=== PATIENT | male | born 1970 | race Caucasian/White ===

== ENCOUNTER 2016-10-16 17:46 | Emergency (ER) | payer OTHER ==
[2016-10-16 18:04] VITALS: TEMP 97.5
[2016-10-16] MEDS ORDERED: SODIUM CHLORIDE 0.9% 1,000 ML IV STA (18:19)
[2016-10-16] MEDS ORDERED: RX INFO: IV CONTRAST WAS GIVEN 1 EACH MISC MISCELLANE PRN (18:24)
--- NOTE | 2016-10-16 18:41 | ED ---
Neck Injury/Pain HPI - General Chief Complaint: Neck Pain/Injury Stated Complaint: neck pain Time Seen by Provider: 10/16/16 18:07 Source: RN notes reviewed Mode of arrival: ambulatory Limitations: no limitations - History of Present Illness Initial Comments: Patient is a 46-year-old male with chief complaint of increased neck pain, fever and chills for approximately one week. Patient reports that he has a history of staph infection in his cervical spine. He reports that he has been admitted in the past and given IV antibiotics for this. He reports that he had surgery on his spine and March 2016 and developed infection. Patient had neck pain and an elevated white count in July 2016. At that point he was transferred to [facility]. Patient states that he has been taking his Neurontin and Flexeril however his pain is continue to persist. He also reports that over the past day he has increased cough and has coughed up some bloody sputum. He reports that he is a smoker. - Related Data Home Medications Medication Instructions Recorded Confirmed Cephalexin [Keflex] 250 mg PO Q8HR 07/22/16 10/16/16 Gabapentin [Neurontin] 300 mg PO TID 07/22/16 10/16/16 Phenytoin Sodium Extended 100 mg PO TID 07/22/16 10/16/16 [Dilantin] oxyCODONE-APAP 10-325MG [Percocet 1 tab PO QID PRN 07/22/16 10/16/16 10-325 mg] Cyclobenzaprine [Flexeril] 10 mg PO TID PRN 10/16/16 10/16/16 Allergies Allergy/AdvReac Type Severity Reaction Status Date / Time No Known Allergies Allergy Verified 10/16/16 18:16 Review of Systems ROS Statement: Those systems with pertinent positive or pertinent negative responses have been documented in the HPI. ROS Other: All systems not noted in ROS Statement are negative. Past Medical History Past Medical History: Seizure Disorder Additional Past Medical History / Comment(s): chronic back pain, neck pain, staph infection to spine History of Any Multi-Drug Resistant Organisms: None Reported Past Surgical History: Orthopedic Surgery Additional Past Surgical History / Comment(s): neck surgery Past Psychological History: No Psychological Hx Reported Smoking Status: Current every day smoker Past Alcohol Use History: None Reported Past Drug Use History: None Reported General Exam - General Exam Comments Initial Comments: Well-appearing 46-year-old male. No acute distress. Limitations: no limitations General appearance: alert, in no apparent distress Head exam: Present: atraumatic, normocephalic, normal inspection Eye exam: Present: normal appearance, PERRL, EOMI. Absent: scleral icterus, conjunctival injection, periorbital swelling ENT exam: Present: normal exam, mucous membranes moist Neck exam: Present: normal inspection, tenderness (Patient has mild tenderness over the C6 through C7 spine. Evidence of previous surgery of an anterior approach with a scar there.). Absent: meningismus, full ROM (She has limited lateral flexion and extension.), lymphadenopathy Respiratory exam: Present: normal lung sounds bilaterally, other (She has no coughing the emergency room.). Absent: respiratory distress, wheezes, rales, rhonchi, stridor Cardiovascular Exam: Present: regular rate, normal rhythm, normal heart sounds. Absent: systolic murmur, diastolic murmur, rubs, gallop, clicks GI/Abdominal exam: Present: soft, normal bowel sounds. Absent: distended, tenderness, guarding, rebound, rigid Extremities exam: Present: normal inspection, full ROM, normal capillary refill. Absent: tenderness, pedal edema, joint swelling, calf tenderness Back exam: Present: normal inspection Neurological exam: Present: alert, oriented X3, CN II-XII intact Psychiatric exam: Present: normal affect, normal mood Skin exam: Present: warm, dry, intact, normal color, other (She has multiple tattoos over her body.). Absent: rash Course Vital Signs 10/16/16 10/16/16 18:01 20:38 Temperature 97.5 F L Pulse Rate 104 H 84 Respiratory 18 16 Rate Blood Pressure 122/68 119/72 O2 Sat by Pulse 100 97 Oximetry Medical Decision Making - Medical Decision Making Patient is a 46-year-old male with chief complaint of increased neck pain, fever and chills for approximately one week. Patient reports that he has a history of staph infection in his cervical spine. He reports that he has been admitted in the past and given IV antibiotics for this. He reports that he had surgery on his spine and March 2016 and developed infection. Lab work was reviewed and is negative for any acute abnormalities. Patient has a negative influenza screen. Chest x-ray is negative for any acute process. CT cervical spine with contrast was reviewed. No evidence of developing abscess or focal abnormalities. There is evidence of previous surgical changes. I discussed the findings with the patient. I discussed with the negative lab workup and the CT that is likely a chronic pain issue causing his increased discomfort at this time. I discussed the patient needs to follow-up with a event specialist product demonstrator. Again patient had no signs of respiratory distress and no coughing in the emergency department. Patient will be advised to follow-up with his primary care provider in regards to continued cough or if he does cough up blood again. Patient was given IV pain medications and I did discuss that he needs to take his at home pain medication. Patient understands the treatment plan will comply. Return parameters were discussed. - Lab Data Result diagrams: 10/16/16 18:49 10/16/16 18:49 Lab Results 10/16/16 10/16/16 10/16/16 Range/Units 18:49 18:49 18:49 WBC 10.0 (3.8-10.6) k/uL RBC 4.54 (4.30-5.90) m/uL Hgb 13.6 (13.0-17.5) gm/dL Hct 41.7 (39.0-53.0) % MCV 91.9 (80.0-100.0) fL MCH 30.1 (25.0-35.0) pg MCHC 32.7 (31.0-37.0) g/dL RDW 14.3 (11.5-15.5) % Plt Count 301 (150-450) k/uL Neutrophils % 67 % Lymphocytes % 26 % Monocytes % 3 % Eosinophils % 1 % Basophils % 1 % Neutrophils # 6.6 (1.3-7.7) k/uL Lymphocytes # 2.6 (1.0-4.8) k/uL Monocytes # 0.3 (0-1.0) k/uL Eosinophils # 0.1 (0-0.7) k/uL Basophils # 0.1 (0-0.2) k/uL Sodium 143 (137-145) mmol/L Potassium 4.3 (3.5-5.1) mmol/L Chloride 107 (98-107) mmol/L Carbon Dioxide 20 L (22-30) mmol/L Anion Gap 16 mmol/L BUN 13 (9-20) mg/dL Creatinine 0.90 (0.66-1.25) mg/dL Est GFR (MDRD) Af Amer >60 (>60 ml/min/1.73 sqM) Est GFR (MDRD) Non-Af >60 (>60 ml/min/1.73 sqM) Glucose 125 H (74-99) mg/dL Plasma Lactic Acid Dong (0.7-2.0) mmol/L Calcium 9.6 (8.4-10.2) mg/dL C-Reactive Protein <5.0 (<10.0) mg/L Influenza Type A RNA Not Detected (Not Detectd) Influenza Type B (PCR) Not Detected (Not Detectd) 10/16/16 Range/Units 18:49 WBC (3.8-10.6) k/uL RBC (4.30-5.90) m/uL Hgb (13.0-17.5) gm/dL Hct (39.0-53.0) % MCV (80.0-100.0) fL MCH (25.0-35.0) pg MCHC (31.0-37.0) g/dL RDW (11.5-15.5) % Plt Count (150-450) k/uL Neutrophils % % Lymphocytes % % Monocytes % % Eosinophils % % Basophils % % Neutrophils # (1.3-7.7) k/uL Lymphocytes # (1.0-4.8) k/uL Monocytes # (0-1.0) k/uL Eosinophils # (0-0.7) k/uL Basophils # (0-0.2) k/uL Sodium (137-145) mmol/L Potassium (3.5-5.1) mmol/L Chloride (98-107) mmol/L Carbon Dioxide (22-30) mmol/L Anion Gap mmol/L BUN (9-20) mg/dL Creatinine (0.66-1.25) mg/dL Est GFR (MDRD) Af Amer (>60 ml/min/1.73 sqM) Est GFR (MDRD) Non-Af (>60 ml/min/1.73 sqM) Glucose (74-99) mg/dL Plasma Lactic Acid Dong 2.0 (0.7-2.0) mmol/L Calcium (8.4-10.2) mg/dL C-Reactive Protein (<10.0) mg/L Influenza Type A RNA (Not Detectd) Influenza Type B (PCR) (Not Detectd) - Radiology Data Radiology results: report reviewed Stable postoperative appearance of the cervical spine with stable alignment. No pathological enhancement or enhancing collection at this time. Chest x-rays no evidence for any acute pulmonary disease. Disposition Clinical Impression: Neck pain Disposition: HOME SELF-CARE Condition: Good Instructions: Cervical Strain (ED) Additional Instructions: Patient advised to take at home pain medication. 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 Return to the emergency department if any alarming signs or symptoms occur. Referrals: Kalli Means MD [Primary Care Provider] - 1-2 days Time of Disposition: 20:26
[2016-10-16 19:20] LABS: Anion Gap 16 mmol/L; Blood Urea Nitrogen 13 mg/dL (9-20); C Reactive Protein <5.0 mg/L (<10.0); Calcium 9.6 mg/dL (8.4-10.2); Carbon Dioxide 20 mmol/L (22-30); Chloride 107 mmol/L (98-107); Glucose 125 mg/dL (74-99); Non-African American GFR(MDRD) >60 (>60 ml/min/1.73 sqM); Potassium 4.3 mmol/L (3.5-5.1); Sodium 143 mmol/L (137-145)
[2016-10-16 19:34] LABS: Basophils # (A) 0.1 k/uL (0-0.2); Basophils % (A) 1 %; CH 29.8; CHCM 32.6; Eosinophils # (A) 0.1 k/uL (0-0.7); Eosinophils % (A) 1 %; HCT 41.7 % (39.0-53.0); HDW 2.35; HGB 13.6 gm/dL (13.0-17.5); Luc # (Auto) 0.25; Luc % (Auto) 3; Lymphocytes # (A) 2.6 k/uL (1.0-4.8); Lymphocytes % (A) 26 %; MCH 30.1 pg (25.0-35.0); MCHC 32.7 g/dL (31.0-37.0); MCV 91.9 fL (80.0-100.0); Mean Platelet Volume 8.6; Monocytes # (A) 0.3 k/uL (0-1.0); Monocytes % (A) 3 %; Neutrophils # (A) 6.6 k/uL (1.3-7.7); Neutrophils % (A) 67 %; RBC 4.54 m/uL (4.30-5.90); RDW 14.3 % (11.5-15.5); WBC (Perox) 9.27
--- NOTE | 2016-10-16 19:45 | XR ---
EXAMINATION TYPE: XR chest 2V DATE OF EXAM: 10/16/2016 7:38 PM COMPARISON: 07/22/2016 HISTORY: Shortness of breath TECHNIQUE: Frontal and lateral views of the chest are obtained. FINDINGS: Scattered senescent parenchymal changes noted. Hyperinflation compatible with COPD. No evidence for infiltrate. No evidence for atelectasis. Heart size is stable. Mediastinal structures are stable and grossly unremarkable. No evidence for hilar prominence. Degenerative changes dorsal spine. IMPRESSION: 1. No evidence for acute pulmonary disease.
--- NOTE | 2016-10-16 20:13 | CT ---
EXAMINATION TYPE: CT cervical spine w con DATE OF EXAM: 10/16/2016 7:51 PM COMPARISON: 07/22/2016 HISTORY: Cervical fusion -2015, patient then developed staph infection. Pain x [address] DLP: 482.[address] of the cervical spine was performed with bone and soft tissue window settings submitted . Coronal and sagittal reconstruction is obtained. Postoperative changes of the anterior cervical discectomy and fusion at C5-6 and C6-7. There is stabl e alignment relative to the prior study. Mild reversal of the normal cervical lordosis. I do not see evidence for enhancing collection or bony destructive process this time. There is normal alignment an d prevertebral soft tissues. I do not see evidence for fracture or subluxation. degenerative brown es are present. The lung apices are clear emphysematous changes right upper lobe. IMPRESSION: 1. Stable postoperative appearance of the cervical spine with stable alignment. No pathologic enhance ment or enhancing collection at this time.
[2016-10-16] MEDS ORDERED: ORPHENADRINE 30 MG/ML 2 ML VIAL IVP STA (20:17)
[2016-10-16] MEDS ORDERED: KETOROLAC 30 MG/ML 1 ML VIAL IVP STA (20:19)
[2016-10-16 20:47] VITALS: BP 119/72; PULSE 84; RESP 16
== END 2016-10-16 20:38 | disposition home or self-care (01) ==
LOC: EC 17:46
DX: S16.1XXA Strain of muscle, fascia and tendon at neck level, initial encounter (principal); R50.9 Fever, unspecified; F17.200 Nicotine dependence, unspecified, uncomplicated; G40.909 Epilepsy, unspecified, not intractable, without status epilepticus; Z79.899 Other long term (current) drug therapy; Z86.19 Personal history of other infectious and parasitic diseases; Z98.890 Other specified postprocedural states; X58.XXXA Exposure to other specified factors, initial encounter
CPT/HCPCS: 96361 ×2; 96374 ×2; 96375 ×2; 99284 ×2; 36415; 80048; 83605; 85025; 86140; 87040; 87502; 71020; 72126; J2360; J1885; Q9967

== ENCOUNTER 2017-02-26 22:03 | Emergency (ER) | payer OTHER ==
[2017-02-26 22:17] VITALS: RESP 18
[2017-02-26] MEDS ORDERED: SODIUM CHLORIDE 0.9% 1,000 ML IV STA (23:02)
--- NOTE | 2017-02-26 23:09 | ED ---
General Adult HPI - General Chief complaint: Skin/Abscess/Foreign Body Stated complaint: Sent by PCP- Lizeth St[facility]. Time Seen by Provider: 02/26/17 22:57 Source: patient, RN notes reviewed Mode of arrival: ambulatory Limitations: no limitations - History of Present Illness Initial comments: Patient 46-year-old male who is a IV drug user with a history of staph infection to his spine, presenting with chief complaint of feeling feverish and rundown over the last few days. Does admit that he talked his family doctor was advised coming here to the emergency room have labs obtained. He does admit to recent IV drug abuse just one day ago. Patient does admit to a history of a staph infection to his spine at a PICC line in place. States that he was just started on a oral antibiotic yesterday by the family doctor of [place]. Patient does admit to feeling feverish at home. Admits to feeling somewhat lethargic. Admits to feeling nauseated. Patient denies any recent chills, shortness of breath, chest pain, back pain, abdominal pain, vomiting, numbness or tingling, dysuria or hematuria, constipation or diarrhea, headaches or visual changes, or any other complaints. - Related Data Home Medications Medication Instructions Recorded Confirmed Gabapentin 600 mg PO TID 02/26/17 02/26/17 Methadone HCl [Methadone Intensol] 95 mg PO DAILY 02/26/17 02/26/17 Phenytoin [Dilantin Chew] 50 mg PO TID 02/26/17 02/26/17 Allergies Allergy/AdvReac Type Severity Reaction Status Date / Time No Known Allergies Allergy Verified 02/26/17 22:57 Review of Systems ROS Statement: Those systems with pertinent positive or pertinent negative responses have been documented in the HPI. ROS Other: All systems not noted in ROS Statement are negative. Past Medical History Past Medical History: Seizure Disorder Additional Past Medical History / Comment(s): chronic back pain, neck pain, staph infection to spine History of Any Multi-Drug Resistant Organisms: None Reported Past Surgical History: Orthopedic Surgery Additional Past Surgical History / Comment(s): neck surgery Past Psychological History: PTSD Smoking Status: Current every day smoker Past Alcohol Use History: None Reported Past Drug Use History: Heroin General Exam - General Exam Comments Initial Comments: General: The patient is awake and alert, in no distress, and does not appear acutely ill. Eye: Pupils are equal, round and reactive to light, extra-ocular movements are intact. No nystagmus. There is normal conjunctiva bilaterally. No signs of icterus. Ears, nose, mouth and throat: There are moist mucous membranes and no oral lesions. Neck: The neck is supple, there is no tenderness or JVD. Cardiovascular: There is a regular rate and rhythm. No murmur, rub or gallop is appreciated. Respiratory: Lungs are clear to auscultation, respirations are non-labored, breath sounds are equal. No wheezes, stridor, rales, or rhonchi. Gastrointestinal: Soft, non-distended, non-tender abdomen without masses or organomegaly noted. There is no rebound or guarding present. No CVA tenderness. Bowel sounds are unremarkable. Musculoskeletal: Normal ROM, no tenderness. Strength 5/5. Sensation intact. Pulses equal bilaterally 2+. Neurological: A&O x 3. CN II-XII intact, There are no obvious motor or sensory deficits. Coordination appears grossly intact. Speech is normal. Skin: Skin is warm and dry and no rashes or lesions are noted. Psychiatric: Cooperative, appropriate mood & affect, normal judgment. Limitations: no limitations Course Vital Signs 02/26/17 22:14 Temperature 98.3 F Pulse Rate 85 Respiratory 18 Rate Blood Pressure 113/73 O2 Sat by Pulse 98 Oximetry Medical Decision Making - Medical Decision Making Labs reviewed here in the emergency room. Negative white count. Negative lactic acid. Pulses culture is pending. At this time patient just started antibiotics yesterday for possible staph infection. Denies using his antibiotics office family doctor over the next 1-2 days. Advised return to emergency room if any symptoms increase or worsen or for any other concerns. - Lab Data Result diagrams: 02/26/17 23:37 02/26/17 23:37 Lab Results 02/26/17 02/26/17 02/26/17 Range/Units 23:37 23:37 23:37 WBC 6.9 (3.8-10.6) k/uL RBC 4.26 L (4.30-5.90) m/uL Hgb 13.0 (13.0-17.5) gm/dL Hct 39.4 (39.0-53.0) % MCV 92.5 (80.0-100.0) fL MCH 30.4 (25.0-35.0) pg MCHC 32.9 (31.0-37.0) g/dL RDW 14.5 (11.5-15.5) % Plt Count 267 (150-450) k/uL Neutrophils % 58 % Lymphocytes % 33 % Monocytes % 4 % Eosinophils % 4 % Basophils % 1 % Neutrophils # 4.0 (1.3-7.7) k/uL Lymphocytes # 2.3 (1.0-4.8) k/uL Monocytes # 0.2 (0-1.0) k/uL Eosinophils # 0.3 (0-0.7) k/uL Basophils # 0.1 (0-0.2) k/uL Sodium 141 (137-145) mmol/L Potassium 4.0 (3.5-5.1) mmol/L Chloride 106 (98-107) mmol/L Carbon Dioxide 26 (22-30) mmol/L Anion Gap 9 mmol/L BUN 7 L (9-20) mg/dL Creatinine 0.80 (0.66-1.25) mg/dL Est GFR (MDRD) Af Amer >60 (>60 ml/min/1.73 sqM) Est GFR (MDRD) Non-Af >60 (>60 ml/min/1.73 sqM) Glucose 131 H (74-99) mg/dL Plasma Lactic Acid Dong 1.7 (0.7-2.0) mmol/L Calcium 9.0 (8.4-10.2) mg/dL Total Bilirubin 0.3 (0.2-1.3) mg/dL AST 37 (17-59) U/L ALT 78 H (21-72) U/L Alkaline Phosphatase 161 H (38-126) U/L Total Protein 6.7 (6.3-8.2) g/dL Albumin 3.8 (3.5-5.0) g/dL Disposition Clinical Impression: History of staph infection Disposition: HOME SELF-CARE Condition: Good Instructions: Abscess (ED) Additional Instructions: Please use medication as discussed. Please follow-up with family doctor in the next 2 days. Please return to emergency room if the symptoms increase or worsen or for any other concerns. Referrals: Kalli Means MD [Primary Care Provider] - 1-2 days Time of Disposition: 00:24
[2017-02-26 23:54] LABS: Basophils # (A) 0.1 k/uL (0-0.2); Basophils % (A) 1 %; CH 29.7; CHCM 32.3; Eosinophils # (A) 0.3 k/uL (0-0.7); Eosinophils % (A) 4 %; HCT 39.4 % (39.0-53.0); HDW 2.65; Luc # (Auto) 0.09; Luc % (Auto) 1; Lymphocytes # (A) 2.3 k/uL (1.0-4.8); Lymphocytes % (A) 33 %; MCH 30.4 pg (25.0-35.0); MCHC 32.9 g/dL (31.0-37.0); MCV 92.5 fL (80.0-100.0); Monocytes # (A) 0.2 k/uL (0-1.0); Monocytes % (A) 4 %; Neutrophils % (A) 58 %; RBC 4.26 m/uL (4.30-5.90); RDW 14.5 % (11.5-15.5); WBC 6.9 k/uL (3.8-10.6); WBC (Perox) 6.76
[2017-02-26 23:58] LABS: ALT 78 U/L (21-72); AST 37 U/L (17-59); Alkaline Phosphatase 161 U/L (38-126); Anion Gap 9 mmol/L; Blood Urea Nitrogen 7 mg/dL (9-20); Carbon Dioxide 26 mmol/L (22-30); Chloride 106 mmol/L (98-107); Glucose 131 mg/dL (74-99); Non-African American GFR(MDRD) >60 (>60 ml/min/1.73 sqM); Sodium 141 mmol/L (137-145); Total Bilirubin 0.3 mg/dL (0.2-1.3); Total Protein 6.7 g/dL (6.3-8.2)
[2017-02-27 00:27] VITALS: BP 116/64; PULSE 80; TEMP 97
== END 2017-02-27 00:31 | disposition home or self-care (01) ==
LOC: EC 22:03
DX: R50.9 Fever, unspecified (principal); R53.83 Other fatigue; R11.0 Nausea; Z86.19 Personal history of other infectious and parasitic diseases; G40.909 Epilepsy, unspecified, not intractable, without status epilepticus; F17.200 Nicotine dependence, unspecified, uncomplicated; Z79.899 Other long term (current) drug therapy
CPT/HCPCS: 36415; 80053; 83605; 85025; 87040; 96360; 99283

== ENCOUNTER 2017-08-10 15:01 | Emergency (ER) | payer OTHER ==
[2017-08-10 15:20] VITALS: BP 111/72; PULSE 89; RESP 18; TEMP 99.1
[2017-08-10] MEDS ORDERED: ONDANSETRON 4 MG/2 ML VIAL IVP STA (16:19)
[2017-08-10] MEDS ORDERED: SODIUM CHLORIDE 0.9% 1,000 ML IV STA ×2 (16:19)
--- NOTE | 2017-08-10 16:35 | ED ---
General Adult HPI - General Chief complaint: Nausea/Vomiting/Diarrhea Stated complaint: Vomiting Time Seen by Provider: 08/10/17 15:56 Source: patient, RN notes reviewed, old records reviewed Mode of arrival: ambulatory Limitations: no limitations - History of Present Illness Initial comments: 46-year-old male presents emergency department today chief complaint of 2 weeks of cough, and feels like there is fluid on his lungs. He reports that a few episodes of vomiting. Patient states that he's had these symptoms for the past 2 weeks. He denies any specific fever or chills. He reports he is diagnosed with hepatitis A, but refused to be admitted at that time. Patient states that he has been feeling dealing with some chronic abdominal pain since the diagnosis of a. Patient states that he has had no changes in bowel habits. Denies any changes in urination. Denies a specific back pain. He reports that he does have some chest discomfort and burning in his lungs. Patient states these not had any recent pain medication or antibiotics or medications. Surgical history includes neck surgery. Is not on any other medications at this time. He does have a history of GERD but he reports that he doesn't this pain does not feel like upper GI reflux. - Related Data Home Medications Medication Instructions Recorded Confirmed Hydrocodone/Acetaminophen [[place] 1 tab PO Q6H PRN 08/10/17 08/10/17 10-325] Phenytoin Sodium Extended 100 mg PO TID 08/10/17 08/10/17 [Dilantin] Allergies Allergy/AdvReac Type Severity Reaction Status Date / Time No Known Allergies Allergy Verified 08/10/17 16:27 Review of Systems ROS Statement: Those systems with pertinent positive or pertinent negative responses have been documented in the HPI. ROS Other: All systems not noted in ROS Statement are negative. Past Medical History Past Medical History: Seizure Disorder Additional Past Medical History / Comment(s): chronic back pain, neck pain, staph infection to spine hepatitis a History of Any Multi-Drug Resistant Organisms: None Reported Past Surgical History: Orthopedic Surgery Additional Past Surgical History / Comment(s): neck surgery Past Psychological History: PTSD Smoking Status: Current every day smoker Past Alcohol Use History: None Reported Past Drug Use History: None Reported, Heroin General Exam - General Exam Comments Initial Comments: This is a 46-year-old male. No distress. Limitations: no limitations General appearance: alert, in no apparent distress Head exam: Present: atraumatic, normocephalic, normal inspection Eye exam: Present: normal appearance, PERRL, EOMI. Absent: scleral icterus, conjunctival injection, periorbital swelling ENT exam: Present: normal exam, mucous membranes moist Neck exam: Present: normal inspection. Absent: tenderness, meningismus, lymphadenopathy Respiratory exam: Present: normal lung sounds bilaterally. Absent: respiratory distress, wheezes, rales, rhonchi, stridor Cardiovascular Exam: Present: regular rate, normal rhythm, normal heart sounds. Absent: systolic murmur, diastolic murmur, rubs, gallop, clicks GI/Abdominal exam: Present: soft, normal bowel sounds. Absent: distended, tenderness, guarding, rebound, rigid Extremities exam: Present: normal inspection, full ROM, normal capillary refill. Absent: tenderness, pedal edema, joint swelling, calf tenderness Back exam: Present: normal inspection Neurological exam: Present: alert, oriented X3, CN II-XII intact Psychiatric exam: Present: normal affect, normal mood Skin exam: Present: warm, dry, intact, normal color. Absent: rash Course Vital Signs 08/10/17 15:17 Temperature 99.1 F Pulse Rate 89 Respiratory 18 Rate Blood Pressure 111/72 O2 Sat by Pulse 99 Oximetry Medical Decision Making - Medical Decision Making This is a 46-year-old male presents today chief complaint of "feeling like her fluid on his lungs". Patient reports that a few episodes of vomiting. I examined the patient, his lungs are clear auscultation, no significant abdominal tenderness, no fluid over bilateral lower extremities. And a complaints of chest pain. I discussed with him I would like to do a workup including EKG, chest x-ray and lab work. Patient was in agreement with this plan. At approximately 10 minutes later patient proceeded to leave without telling anybody in the emergency department he was leaving or why he was leaving. Patient did not relate to me that he was in any type insurance or under any distress. He seemed to be appropriate while I was evaluating the patient. They did not seem upset or hostile at that time. I do not know why the patient left. Patient left AMA. Disposition Clinical Impression: Vomiting, Chest pain Disposition: Left Against Medical Advice Referrals: Kalli Means MD [Primary Care Provider] - 1-2 days Time of Disposition: 16:34
== END 2017-08-10 16:25 | disposition left against medical advice (07) ==
LOC: EC 15:01
DX: R07.9 Chest pain, unspecified (principal); R11.10 Vomiting, unspecified; R05 Cough; G40.909 Epilepsy, unspecified, not intractable, without status epilepticus; F17.200 Nicotine dependence, unspecified, uncomplicated; Z79.899 Other long term (current) drug therapy
CPT/HCPCS: 99284

== ENCOUNTER 2019-08-14 11:26 | Emergency (ER) | payer OTHER ==
[2019-08-14 11:40] VITALS: BP 98/70; PULSE 110; RESP 18; TEMP 98
--- NOTE | 2019-08-14 12:49 | ED ---
Male Urogenital HPI - General Chief complaint: Urogenital Stated complaint: Male Time Seen by Provider: 08/14/19 11:44 Source: patient Mode of arrival: ambulatory Limitations: no limitations - History of Present Illness Initial comments: Patient is a 48-year-old male presenting to emergency Department with a chief complaint of testicular swelling. He states that his testicle has been swollen for about one year. Reportedly was only discomfort but no significant pain or tenderness. He reports over the last day the pain in the swelling is increasing severity. He denies any nausea or vomiting but does report some suprapubic abdominal pain. Denies any obstructive urinary symptoms. Denies any penile swelling or discharge. Patient is not concerned for STDs. Patient denies any night sweats fevers or chills. States the pain is not alleviated with testicular elevation. Denies taking any other medication to alleviate the symptoms. - Related Data Home Medications Medication Instructions Recorded Confirmed Hydrocodone/Acetaminophen [[place] 1 tab PO Q6H PRN 08/10/17 08/10/17 10-325] Phenytoin Sodium Extended 100 mg PO TID 08/10/17 08/10/17 [Dilantin] Allergies Allergy/AdvReac Type Severity Reaction Status Date / Time No Known Allergies Allergy Verified 08/10/17 16:27 Review of Systems ROS Statement: Those systems with pertinent positive or pertinent negative responses have been documented in the HPI. ROS Other: All systems not noted in ROS Statement are negative. Past Medical History Past Medical History: Seizure Disorder Additional Past Medical History / Comment(s): chronic back pain, neck pain, staph infection to spine hepatitis a History of Any Multi-Drug Resistant Organisms: None Reported Past Surgical History: Orthopedic Surgery Additional Past Surgical History / Comment(s): neck surgery Past Psychological History: PTSD Smoking Status: Current every day smoker Past Alcohol Use History: None Reported Past Drug Use History: None Reported, Heroin General Exam Limitations: no limitations General appearance: alert, in no apparent distress Head exam: Present: atraumatic, normocephalic, normal inspection Eye exam: Present: normal appearance, PERRL, EOMI Pupils: Present: normal accommodation ENT exam: Present: normal exam, mucous membranes moist Neck exam: Present: normal inspection, full ROM Respiratory exam: Present: normal lung sounds bilaterally Cardiovascular Exam: Present: regular rate, normal rhythm, normal heart sounds GI/Abdominal exam: Present: soft, tenderness (Mild hypogastric abdominal pain.). Absent: distended exam: Present: normal inspection, testicular tenderness (Very mild testicular tenderness on palpation), scrotal swelling (Left testicular swelling.), circumcision, other (No testicular erythema. Negative Prehn's sign.). Absent: urethral discharge, vertical testicular lie Extremities exam: Present: normal inspection, full ROM, normal capillary refill Back exam: Present: normal inspection, full ROM Neurological exam: Present: alert, oriented X3 Psychiatric exam: Present: normal affect, normal mood Skin exam: Present: warm, dry, intact, normal color Course Vital Signs 08/14/19 11:36 Temperature 98.0 F Pulse Rate 110 H Respiratory 18 Rate Blood Pressure 98/70 O2 Sat by Pulse 98 Oximetry Medical Decision Making - Medical Decision Making Patient is a 48-year-old male presenting to emergency Department with a chief complaint of testicular pain. This has been ongoing for the past year with sudden increase in pain and swelling. On exam patient does have enlargement of the left testicle. Negative Prehn sign. Ultrasound shows good blood flow that is symmetric in bilateral testicles. A large cyst appears to be about 5 cm in size located in the left scrotum superior to the left testicle most likely being an epididymal cyst. Patient advised to follow-up with urology for further management. Patient will be discharged with Zofran. Strict return parameters were thoroughly discussed with patient was understanding and agreeable. Case discussed with physician. Disposition Clinical Impression: Epididymal cyst, Testicular swelling, left Disposition: HOME SELF-CARE Condition: Stable Instructions (If sedation given, give patient instructions): Scrotal Pain (ED) Additional Instructions: Please follow up with urology. Alternate between Tylenol and ibuprofen for pain control. Take prescribed medication as directed. Is patient prescribed a controlled substance at d/c from ED?: No Referrals: Kalli Means MD [Primary Care Provider] - 1-2 days Edgar Donahue MD [STAFF PHYSICIAN] - 1-2 days Time of Disposition: 13:58
--- NOTE | 2019-08-14 12:53 | US ---
EXAMINATION TYPE: US scrotum with doppler. Grayscale and color Doppler Duplex imaging performed of t he scrotum. DATE OF EXAM: 08/14/2019 COMPARISON: NONE CLINICAL HISTORY: swelling tenderness. Pt states left testicle swelling x 1 year, recent pain EXAM MEASUREMENTS: TESTICLES: Right Testicle: 4.8 x 2.2 x 3.2 cm Left Testicle: 3.9 x 2.0 x 3.8 cm EPIDIDYMIS HEAD: Right Epididymis: 1.0 cm Left Epididymis: unable to to visualize normal epididymis Doppler performed to assess for testicular vascularity; good bilateral color flow and waveforms are s een. Presence of hydroceles: Small amount of fluid surrounding left testicle Presence of varicoceles: NO Both testicles are identified without suspicious intratesticular mass. There is asymmetric left-sided scrotal fluid collection or hydrocele not completely anechoic. 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 Color images show satisfactory blood flow bilateral ly. Superior to left testicle there is 5.4 cm simple appearing thin-walled cyst could reflect large e pididymal cyst. Color images show satisfactory symmetric blood flow to both testicles. IMPRESSION: Symmetric blood flow to both testicles. [id number] size left-sided scrotal fluid c ollection which is not completely anechoic. Large just over 5 cm simple appearing cyst left scrotum s uperior to the testicle could reflect large epididymal cyst.
[2019-08-14 14:07] LABS: Appearance,Urine Clear (Clear); Bilirubin,Urine Negative (Negative); Blood,Urine Negative (Negative); Color,Urine Yellow; Glucose,Urine (UA) Negative (Negative); Ketones,Urine Negative (Negative); Leukocyte Esterase,Urine Negative (Negative); Nitrite,Urine Negative (Negative); PH, Urine 5.5 (5.0-8.0); Protein,Urine Negative (Negative); Specific Gravity,Urine 1.014 (1.001-1.035); Urobilinogen,Urine <2.0 mg/dL (<2.0)
== END 2019-08-14 14:26 | disposition home or self-care (01) ==
LOC: EC 11:26
DX: N50.3 Cyst of epididymis (principal); G40.909 Epilepsy, unspecified, not intractable, without status epilepticus; F17.200 Nicotine dependence, unspecified, uncomplicated; Z79.899 Other long term (current) drug therapy
CPT/HCPCS: 76870; 81003; 93975; 99284